=== PATIENT | male | born 1970 | race Caucasian/White ===

== ENCOUNTER 2023-09-15 04:45 | Emergency (ER) | payer BC ==
[~2023-09-15] VITALS: Ht 175.3 cm; Wt 95.3 kg
[2023-09-15 04:49] VITALS: BP_SYST 206; PULSE 107; RESP 20; TEMP 97.4; O2SAT 97
[2023-09-15 06:26] LABS: BASOPHILS # (AUTO) 0.1 K/uL (0.0-0.2); BASOPHILS % (AUTO) 0.9 % (0.0-2.0); EOSINOPHILS # (AUTO) 0.4 K/uL (0.0-0.4); EOSINOPHILS % (AUTO) 6.4 % (0.0-4.0); HEMATOCRIT 41.3 % (36-54); HEMOGLOBIN 14.5 g/dL (14.0-18.0); LYMPHOCYTES # (AUTO) 1.7 K/uL (1.0-5.5); LYMPHOCYTES % (AUTO) 27.9 % (20.5-51.5); MEAN CORPUSCULAR HEMOGLOBIN 32 pg (27-31); MEAN CORPUSCULAR HGB CONC 35 % (32-36); MEAN CORPUSCULAR VOLUME 92 fL (79.0-98.0); MONOCYTES # (AUTO) 0.5 K/uL (0.0-1.0); MONOCYTES % (AUTO) 7.8 % (1.7-9.3); NEUTROPHILS # (AUTO) 3.4 K/uL (1.8-7.7); PLATELET COUNT (AUTO) 311 K/uL (130-430); RED BLOOD CELL COUNT(AUTO) 4.46 MIL/uL (4.2-6.2); RED CELL DISTRIBUTION WIDTH 12.3 % (9.0-15.0)
[2023-09-15 06:29] LABS: ANION GAP 9 (5-15); CALCIUM 9.5 mg/dL (8.4-11.0); CARBON DIOXIDE 29 mmol/L (23-29); CHLORIDE 99 mmol/L (98-107); CREATININE 0.96 mg/dL (0.55-1.30); GFR AFRICAN AMERICAN 105 mL/min (>90); GLUCOSE 149 mg/dL (74-106); SODIUM SERUM 137 mmol/L (136-145); UREA NITROGEN, BLOOD 14 mg/dL (8-21)
[2023-09-15 06:32] LABS: GFR NON AFRICAN-AMERICAN 86 mL/min (>90)
[2023-09-15 06:36] LABS: ALANINE AMINOTRANSFERASE 37 U/L (12-78); ALBUMIN 4.2 g/dL (3.4-4.8); ASPARTATE AMINOTRANSFERASE 16 U/L (10-37); BILIRUBIN,DIRECT 0.1 mg/dL (0.0-0.3); TOTAL BILIRUBIN 0.8 mg/dL (0.0-1.0); TOTAL PROTEIN, SERUM 7.7 g/dL (6.4-8.3)
[2023-09-15] MEDS ORDERED: [UNRECOGNIZED DRUG - CODE] PO (07:14)
[2023-09-15 07:29] VITALS: BP_SYST 165; PULSE 71; RESP 16; TEMP 99; O2SAT 99
== END 2023-09-15 07:29 | disposition home or self-care (01) ==
LOC: SED 04:45
DX: I10 Essential (primary) hypertension (principal); Z79.899 Other long term (current) drug therapy
CPT/HCPCS: 36415; 80048; 80076; 84484; 85025; 99285